=== PATIENT | male | born 1995 | race Hispanic/Latino ===

== ENCOUNTER 2022-10-04 10:45 | Emergency (ER) | payer SELFPAY ==
[~2022-10-04] VITALS: Ht 157.5 cm; Wt 70.0 kg
[2022-10-04 11:15] VITALS: BP 101/70
[2022-10-04 11:30] VITALS: BP 101/69
[2022-10-04 11:45] VITALS: BP 116/77
[2022-10-04] MEDS ORDERED: PAXLOVID PO (11:55)
[2022-10-04 12:00] VITALS: BP 116/77
== END 2022-10-04 12:15 | disposition home or self-care (01) | DRG 179 ==
LOC: ED 10:45
DX: U07.1 COVID-19 (principal); R05.9 Cough, unspecified; R52 Pain, unspecified